=== PATIENT | female | born 1985 | race Caucasian/White ===

== ENCOUNTER 2017-07-07 17:29 | Emergency (ER) | payer BC ==
[~2017-07-07 17:29] MED LIST: ISOVUE-370 76%-LOCM 1 ML ONE
[2017-07-07 18:08] LABS: Bilirubin Negative (Negative); Blood, Urine Negative (Negative); Clarity CLEAR (Clear); Glucose, Urine (Dipstick) Negative (Negative); Leukocyte Negative (Negative); Nitrite Negative (Negative); Protein, Urine (Dipstick) Negative (Neg-Trace); Specific Gravity, Urine 1.014 (1.002-1.036)
[2017-07-07 18:10] LABS: Pregnancy Test - Urine (BHCG) Negative (Negative); Pregu Control Background? CLEAR/WHITE (CLR/WHITE); Pregu Control Bar Appear? YES (CONTROL BAR); Specific Gravity 1.014 (1.002-1.036)
[2017-07-07 19:41] LABS: #Basophils 0.1 thou/uL (0.0-0.2); #Eosinphils 0.1 thou/uL (0.0-0.7); #Lymphocytes 1.6 thou/uL (1.20-3.40); #Neutrophils 11.9 thou/uL (1.40-6.50); %Basophils 0.4 % (0.0-1.0); %Eosinophils 0.6 % (0.0-10.0); %Lymphocytes 10.6 % (21.0-51.0); %Monocytes 6.7 % (0.0-10.0); %Neutrophils 81.7 % (42.0-75.0); Hemoglobin 10.1 g/dL (12.0-16.0); Mean Corpuscular HGB CONC 31.5 g/dL (32.0-36.0); Mean Corpuscular Hemoglobin 22.6 pg (27.0-31.0); Mean Corpuscular Volume 71.9 fl (81.0-99.0); Mean Platelet Volume 10.6 fL (7.4-10.4); Platelet Count 433 thou/uL (130-400); Red Blood Cell (RBC) Count 4.46 mill/uL (4.20-5.40); White Blood Cell (WBC) Count 14.5 thou/uL (4.8-10.8)
[2017-07-07 19:54] LABS: Anisocytosis MODERATE=16-30 cells (100X) (0-5/hpf); Elliptocytes SLIGHT = 2-5 cells (100X) (0-1/hpf); Hypochromia SLIGHT = 6-15 cells (100X) (0-5/hpf); MDiff Complete? YES; Microcytosis MODERATE=15-30 cells (100X) (0-5/hpf); Ovalocytes SLIGHT = 2-5 cells (100X) (0-1/hpf); PLT Morphology Comment Appears Increased; Polychromasia SLIGHT = 2-3 cells (100X) (0-2/hpf); Target Cells SLIGHT = 2-5 cells (100X) (0-1/hpf); Tear Drops SLIGHT = 2-5 cells (100X) (0-1/hpf)
[2017-07-07 20:04] LABS: ALT (SGPT) 12 U/L (8-55); AST (SGOT) 17 U/L (5-34); Albumin 4.1 g/dL (3.5-5.0); Alkaline Phosphatase 72 U/L (40-150); Anion Gap 15 mmol/L (10-20); BUN (Urea Nitrogen) 5 mg/dL (7.0-18.7); Calc. Creatinine Clearance 0 mL/min (70-130); Calcium 9.2 mg/dL (7.8-10.44); Carbon Dioxide 22 mmol/L (22-29); Chloride 106 mmol/L (98-107); Estimated GFR-MDRD Greater than 90; Globulin 3.2 g/dL (2.4-3.5); Glucose 86 mg/dL (70-105); Lipase 9 U/L (8-78); Potassium 4.2 mmol/L (3.5-5.1); Protein, Total 7.3 g/dL (6.0-8.3); Sodium 139 mmol/L (136-145)
[2017-07-07] MEDS ORDERED: Ciprofloxacin 500 MG TAB ONE (20:17)
[2017-07-07] MEDS ORDERED: metroNIDAZOLE 500 MG/100 ML BAG ONE (20:18)
--- NOTE | 2017-07-07 20:27 | CT ---
ABDOMEN CT WITH CONTRAST PELVIC CT WITH CONTRAST: Date: 07/07/17 HISTORY: Lower abdominal pain x2 months. Worsening today. Three episodes of diarrhea. One episode of vomiting. COMPARISON: None. TECHNIQUE: Abdomen and pelvic CT are performed with IV contrast. Enteric contrast was not administered. Coronal reformatted images are submitted for interpretation. FINDINGS: ABDOMEN CT: Lung bases are clear. Descending thoracic aorta and abdominal aorta have a normal caliber. No periaor tic fat stranding. Intra and extrahepatic portal veins is patent. Liver, spleen, pancreas, and adrenal glands have appropriate enhancement. Gallbladder is unremarkable. No gastrohepatic, retrocrural, or periportal lymphadenopathy. Symmetric attenuation of psoas muscles. Symmetric enhancement of kidneys. Bilaterally, no obstructive uropathy. No mesenteric mass, lymphadenopathy, or free air. There is stranding of the left lower quadrant abdominal mesentery, as well as mesentery in the pelvis . Limited evaluation of the alimentary canal due to absence of oral contrast. Gastric mucosa is unrema rkable. Duodenum and multiple normal caliber small bowel loops are noted. Normal ileocecal junction. The proximal and mid appendix have hyperdense material suggesting appendicolith. The mid to distal ap pendix is fluid-filled and slightly prominent, measuring 6.0 mm. No obvious inflammatory change. The right hemicolon is unremarkable. There is fatty infiltration of the mid transverse colon and the marycruz rity of the left hemicolon. There is colonic mucosal thickening with mild pericolonic fat stranding i nvolving the proximal and mid sigmoid colon. There appears to be an intraluminal mass with some narro wing of the overall diameter. Findings may be due to infectious or inflammatory process. However, giv en the somewhat circumferential nature of this mucosal thickening, an underlying neoplastic process c annot be excluded. Colonoscopy is recommended. There are mildly enlarged, adjacent reactive mesenteri c lymph nodes. [employer] enlarged lymph node measures 1.[address]: Uterus and adnexal structures are unremarkable. Trace amount of free fluid in the pelvis. No lymphade nopathy or free air. Urinary bladder is unremarkable. No lytic or blastic lesions in the osseous structures. IMPRESSION: 1. Circumferential mucosal prominence involving the sigmoid colon. There is some mild adjacent infla mmatory change. The possibility of an infectious inflammatory process should be considered in a patie nt of this age. However, given the overall circumferential nature, the possibility of a malignant les ion cannot be excluded. There are enlarged lymph nodes in the adjacent mesentery, which may be reacti ve. If there is malignancy, metastasis should be considered. 2. Upper normal distal appendix without obvious inflammatory change. Clinical correlation is recomme nded. Results of study discussed with Dr. Barriga on 07/07/17 at 2004 hours. CODE CR. POS: [facility]
[2017-07-08 22:53] LABS: Chlamydia by PCR Not Detected (NotDetected); GC by PCR Not Detected (NotDetected)
== END 2017-07-07 21:52 | disposition home or self-care (01) ==
LOC: ERS 17:29
DX: K57.92 Diverticulitis of intestine, part unspecified, without perforation or abscess without bleeding (principal); F17.290 Nicotine dependence, other tobacco product, uncomplicated
CPT/HCPCS: 36415; 74177; 80053; 81003; 81025; 83690; 85025; 87480; 87491; 87510; 87591; 87660; 96365